=== PATIENT | male | born 1980 | race Caucasian/White ===

== ENCOUNTER 2017-05-16 18:07 | Emergency (ER) | payer OTHER ==
[~2017-05-16] VITALS: Ht 167.6 cm; Wt 131.5 kg
[2017-05-16 18:14] VITALS: BP_SYST 123
[2017-05-16 18:19] VITALS: BP_SYST 123
== END 2017-05-16 18:12 ==
LOC: SED 18:07
DX: Z02.89 Encounter for other administrative examinations (principal)
CPT/HCPCS: 99283